=== PATIENT | male | born 1990 | race African-American/Black ===

== ENCOUNTER 2017-06-25 02:17 | Emergency (ER) | payer OTHER ==
[2017-06-25 02:26] VITALS: BP 169/94
--- NOTE | 2017-06-25 05:32 | ER Document Report ---
ED Extremity Problem, Lower - General Mode of Arrival: Ambulatory Information source: Patient TRAVEL OUTSIDE OF THE [place] IN LAST 30 DAYS: No <PATSY KURTZ - Last Filed: 06/25/17 06:04> <CHIN FISCHER - Last Filed: 06/25/17 07:13> - General Chief Complaint: Foot Pain Stated Complaint: RIGHT FOOT SWELLING Time Seen by Provider: 06/25/17 05:12 Notes: Patient is a 27-year-old male who presents to the emergency department today with complaints of right foot pain. Patient states he noticed this pain when waking up this morning while getting ready for work. Patient states as the day has gone on, the pain has progressed along with increase swelling. Patient states the pain seems to be located in his right great toe. Patient denies a history of gout. Patient denies any trauma to the area. (PATSY KURTZ) - Related Data Allergies/Adverse Reactions: No Known Allergies Allergy (Verified 06/25/17 02:22) Past Medical History - General Information source: Patient - Social History Family History: Reviewed & Not Pertinent - Past Medical History Cardiac Medical History: Reports: Hx Hypertension Past Surgical History: Reports: Hx Appendectomy - Immunizations Hx Diphtheria, Pertussis, Tetanus Vaccination: Yes <PATSY KURTZ - Last Filed: 06/25/17 06:04> - Social History Smoking Status: Current Every Day Smoker Chew tobacco use (# tins/day): No Frequency of alcohol use: Occasional Drug Abuse: None <CHIN FISCHER - Last Filed: 06/25/17 07:13> Review of Systems - Review of Systems Constitutional: No symptoms reported EENT: No symptoms reported Cardiovascular: No symptoms reported Respiratory: No symptoms reported Gastrointestinal: No symptoms reported Genitourinary: No symptoms reported Male Genitourinary: No symptoms reported Musculoskeletal: See HPI, Joint pain - right foot Skin: No symptoms reported Hematologic/Lymphatic: No symptoms reported Neurological/Psychological: No symptoms reported -: Yes All other systems reviewed and negative <PATSY KURTZ - Last Filed: 06/25/17 06:04> Physical Exam <PATSY KURTZ - Last Filed: 06/25/17 06:04> <CHIN FISCHER - Last Filed: 06/25/17 07:13> - Vital signs Vitals: Temp Pulse Resp BP Pulse Ox 98.5 F 87 20 169/94 H 97 06/25/17 02:23 06/25/17 02:23 06/25/17 02:23 06/25/17 02:23 06/25/17 02:23 - Notes Notes: PHYSICAL EXAM GENERAL: Alert, interacts well. No acute distress. HEAD: Normocephalic, atraumatic. EYES: Pupils equal, round, and reactive to light. Extraocular movements intact. ENT: Oral mucosa moist, tongue midline. NECK: Full range of motion. Supple. Trachea midline. LUNGS: No respiratory distress. ABDOMEN: Non-distended. EXTREMITIES: Moves all 4 extremities spontaneously. No edema, radial and dorsalis pedis pulses 2/4 bilaterally. No cyanosis. Ecchymosis, warmth, and tenderness with palpation over right 1st MTP. No lymphangitic streaking. NEUROLOGICAL: Alert and oriented x3. Normal speech. PSYCH: Normal affect, normal mood. SKIN: Warm, dry, normal turgor. No rashes or lesions noted. (PATSY KURTZ) Course <PATSY KURTZ - Last Filed: 06/25/17 06:04> <CHIN FISCHER - Last Filed: 06/25/17 07:13> - Re-evaluation Re-evalutation: 06/25/17 05:33 Consistent with gout, no evidence of infection, treat with colchicine, prednisone, [place] dispense pack and discharged home. (CHIN FISCHER) - Vital Signs Vital signs: Temp Pulse Resp BP Pulse Ox 98.5 F 87 20 169/94 H 97 06/25/17 02:23 06/25/17 02:23 06/25/17 02:23 06/25/17 02:23 06/25/17 02:23 Discharge <PATSY KURTZ - Last Filed: 06/25/17 06:04> <CHIN FISCHER - Last Filed: 06/25/17 07:13> - Discharge Clinical Impression: Acute gout of right foot Qualifiers: Gout etiology: unspecified cause Qualified Code(s): M10.9 - Gout, unspecified Hypertension Qualifiers: Hypertension type: essential hypertension Qualified Code(s): I10 - Essential ( primary) hypertension Condition: Stable Disposition: HOME, SELF-CARE Additional Instructions: Gout You have been diagnosed as having gout. Gout is a problem caused by an excess of uric acid, a natural chemical found in the body. The cause of this disease is unknown. Gout arthritis occurs when crystals of uric acid form in the joints. The big toe is the most common joint involved, but any joint can become affected. Persons with gout may also form uric acid kidney stones, resulting in flank pain and blood in the urine. Nodules of uric acid may form under the skin. The first step of treatment is to decrease the inflammation in the joint with antiinflammatory medication. Medication to lower the uric acid level in the blood may then be prescribed. This medication should be taken regularly, as any sudden change in dosage may provoke an attack of gout. Some foods, such as red meat, can provoke an attack in some gout sufferers. Call the doctor if new symptoms arise, or if you do not improve. Gout Diet Changing your diet can decrease the uric acid in your blood. High levels of uric acid cause gouty arthritis and uric acid kidney stones. If you have gout , you should avoid meats that are high in purine. Meat products to avoid include liver, kidneys, and brains. In general, poultry is better than red meats. Seafoods to avoid include anchovies, sardines, wynne, mackerel, and scallops. In addition to limiting purine-rich foods, people with gout should limit protein intake to 10-15% of total calories. Carbohydrate intake should be around 50% of total daily calories. Limit fat intake to 30% of total daily calories. Cholesterol intake should be less than 300 mg/day. Maintain or achieve a healthy body weight. Weight loss should be gradual. Rapid weight loss can actually increase uric acid levels temporarily. Alcohol, especially beer, should be avoided. Get plenty of fluids. This dilutes urinary uric acid, and helps prevent uric acid kidney stones. Drink eight to twelve cups of water daily. Prescriptions: Colchicine [Colchicine 0.6 mg Tablet] 0.6 mg PO Q6HP PRN #10 tablet PRN Reason: Prednisone [Deltasone 20 mg Tablet] 60 mg PO DAILY #15 tablet Forms: Elevated Blood Pressure, Return to Work Scribe Attestation: 06/25/17 07:13 I personally performed the services described in the documentation, reviewed and edited the documentation which was dictated to the scribe in my presence, and it accurately records my words and actions. (CHIN FISCHER) Scribe Documentation - Scribe Written by Scribe:: Andrew Hua, 06/25/2017 [id number] acting as scribe for :: Kashif <PATSY KURTZ - Last Filed: 06/25/17 06:04>
[2017-06-25] MEDS ORDERED: PREDNISONE 20 MG TABLET PO ONE (05:35)
[2017-06-25] MEDS ORDERED: COLCHICINE 0.6 MG TABLET PO ONE (05:35)
[2017-06-25] MEDS ORDERED: HYDROCODONE/ACETAMINOPHEN 5-325 MG 6 TAB/DSPK PO PRN (05:35)
== END 2017-06-25 06:27 | disposition home or self-care (01) ==
LOC: ER 02:17
DX: M10.9 Gout, unspecified (principal); I10 Essential (primary) hypertension; F17.200 Nicotine dependence, unspecified, uncomplicated
CPT/HCPCS: 99283; J7512

== ENCOUNTER 2018-05-20 00:13 | Emergency (ER) | payer OTHER ==
--- NOTE | 2018-05-20 01:27 | ER Document Report ---
ED Medical Screen (RME) - General Chief Complaint: Swelling of Tongue Stated Complaint: DIFFICULT TO SWALLOW/SORE THROAT Time Seen by Provider: 05/20/18 01:25 Mode of Arrival: Ambulatory Information source: Patient TRAVEL OUTSIDE OF THE [place] IN LAST 30 DAYS: No - HPI Patient complains to provider of: throat pain Notes: 05/20/18 01:26 Patient is here with complaints of right tongue swelling and right-sided sore throat. Patient states that he woke up with some mild swelling to the right aspect of his tongue. He denies any specific injury or biting this area. States that does not hurt. He denies any difficulty breathing or swallowing. He does complain of some fullness in the right side of his neck/throat area when he swallows. He denies taking any daily medications. He is not on lisinopril. He denies fever. He denies any nausea, vomiting, diarrhea. Physical exam: Minimal edema noted to the right lateral tongue. No redness. No induration. No sublingual induration. No swelling to the submental space. Mild tenderness to palpation of the right anterior neck. No swelling. Posterior pharynx exam is unremarkable with no peritonsillar abscess. Uvula is midline. No trismus or drooling. Patient is nontoxic-appearing. An initial examination was made on the patient as part of the triage process, and it was determined a more comprehensive evaluation was necessary. Initial labs were ordered and patient was transferred to another provider in the ED who assumed care and finished evaluation and plan. - Related Data Allergies/Adverse Reactions: No Known Allergies Allergy (Verified 06/25/17 02:22) Past Medical History - Social History Chew tobacco use (# tins/day): No Frequency of alcohol use: Rare Drug Abuse: None - Past Medical History Cardiac Medical History: Reports: Hx Hypertension Renal/ Medical History: Denies: Hx Peritoneal Dialysis Past Surgical History: Reports: Hx Appendectomy - Immunizations Hx Diphtheria, Pertussis, Tetanus Vaccination: Yes Physical Exam - Vital signs Vitals: Temp Pulse Resp BP Pulse Ox 99.4 F 65 18 154/92 H 97 05/20/18 00:52 05/20/18 00:52 05/20/18 00:52 05/20/18 00:52 05/20/18 00:52 Course - Vital Signs Vital signs: Temp Pulse Resp BP Pulse Ox 99.4 F 65 18 154/92 H 97 05/20/18 00:52 05/20/18 00:52 05/20/18 00:52 05/20/18 00:52 05/20/18 00:52
[2018-05-20 03:03] LABS: ABSOLUTE BASOPHILS # (AUTO) 0.1 10^3/uL (0.0-0.2); ABSOLUTE EOSINOPHILS # (AUTO) 0.2 10^3/uL (0.0-0.6); ABSOLUTE LYMPHOCYTES (AUTO) 2.9 10^3/uL (0.5-4.7); ABSOLUTE MONOCYTES (AUTO) 0.7 10^3/uL (0.1-1.4); ABSOLUTE NEUT (AUTO) 6.4 10^3/uL (1.7-8.2); BASOPHILS % (AUTO) 0.5 % (0-2); EOSINOPHILS % (AUTO) 2.4 % (0-6); HEMATOCRIT 38.3 % (37.9-51.0); HEMOGLOBIN 12.7 g/dL (13.5-17.0); LYMPHOCYTES % (AUTO) 27.8 % (13-45); MEAN CORPUSCULAR HEMOGLOBIN 26.2 pg (27.0-33.4); MEAN CORPUSCULAR HGB CONC 33.1 g/dL (32.0-36.0); MEAN CORPUSCULAR VOLUME 79 fl (80-97); MONOCYTES % (AUTO) 6.5 % (3-13); PLATELET COUNT 336 10^3/uL (150-450); RED BLOOD COUNT 4.84 10^6/uL (4.35-5.55); RED CELL DISTRIBUTION WIDTH 13.5 % (11.5-14.0); TOTAL CELLS COUNTED % (AUTO) 100 %; WHITE BLOOD COUNT 10.3 10^3/uL (4.0-10.5)
[2018-05-20 03:10] LABS: SEGMENTED NEUTROPHILS % (AUTO) 62.8 % (42-78)
[2018-05-20 03:22] LABS: ALANINE AMINOTRANSFERASE 29 U/L (21-72); ALBUMIN 4.4 g/dL (3.5-5.0); ALKALINE PHOSPHATASE 64 U/L (38-126); ANION GAP 12 (5-19); ASPARTATE AMINO TRANSFERASE 24 U/L (17-59); BILIRUBIN,DIRECT 0.4 mg/dL (0.0-0.4); BILIRUBIN,TOTAL 0.5 mg/dL (0.2-1.3); BLOOD UREA NITROGEN 16 mg/dL (7-20); CALCIUM 9.5 mg/dL (8.4-10.2); CARBON DIOXIDE 27 mmol/L (22-30); CHLORIDE 107 mmol/L (98-107); GLUCOSE 88 mg/dL (75-110); POTASSIUM 4.1 mmol/L (3.6-5.0); SODIUM 145.5 mmol/L (137-145); TOTAL PROTEIN 7.6 g/dL (6.3-8.2)
--- NOTE | 2018-05-20 04:00 | RADIOLOGY REPORT (SQ) ---
EXAM DESCRIPTION: CT NECK CHEST WITH IV CONTRAST COMPLETED DATE/TME: 05/20/2018 01:25 CLINICAL HISTORY: right tongue swelling, pain in right throat COMPARISON: None available TECHNIQUE: Axial CT of the neck soft tissues obtained following the uncomplicated intravenous administration of 75 mL Isovue-370. Coronal and sagittal reformatted images available. DLP: 631.61 mGy-cm FINDINGS: Orbits: Orbital floors and hardy are intact. Intraorbital contents: The globes are intact. Extraocular muscles are symmetric. No intraconal fat stranding. Facial bones: Intact. Parotid space: Chronic glands have a normal appearance. Submandibular space: No abnormalities of the submandibular glands. Lymph nodes: Scattered neck soft tissues lymph nodes are not enlarged by CT criteria. Parapharyngeal space: No abnormality identified Pharyngeal mucosal space/retropharyngeal space: No abnormality identified. Visceral space: No abnormality identified. Superior mediastinum: No definite abnormalities identified. Other: No definite abnormality involving the nasopharynx, oropharynx, or hypopharynx. Fossa of [place]muller are clear. Thyroid gland is unremarkable. Visualized tongue base is symmetric without enhancing mass identified. Subcutaneous soft tissues demonstrate no definite abnormalities. Visualized lung apices demonstrate no abnormalities. No acute osseous abnormalities. Exostosis arising from the left fourth rib. IMPRESSION: 1. No acute abnormality identified in the neck soft tissues. This exam was performed according to our departmental dose-optimization program, which includes automated exposure control, adjustment of the mA and/or kV according to patient size and/or use of iterative reconstruction technique.
[2018-05-20] MEDS ORDERED: PREDNISONE 20 MG TABLET PO ONE (04:37)
[2018-05-20] MEDS ORDERED: DEXAMETHASONE SOD PHOS INJ 10 MG/1 ML VIAL IM ONE (04:39)
--- NOTE | 2018-05-20 04:42 | ER Document Report ---
ED General - General Chief Complaint: Swelling of Tongue Stated Complaint: DIFFICULT TO SWALLOW/SORE THROAT Time Seen by Provider: 05/20/18 01:25 Mode of Arrival: Ambulatory Information source: Patient Notes: Patient is a 28-year-old male who presents with chief complaint of right tongue swelling that started this morning. Patient denies any other symptoms. Patient reports that he is able to swallow without difficulties. Patient does have a history of hypertension however he denies taking any medications for hypertension. Patient is able to speak in complete sentences and has no difficulties swallowing. TRAVEL OUTSIDE OF THE [place] IN LAST 30 DAYS: No - Related Data Allergies/Adverse Reactions: No Known Allergies Allergy (Verified 05/20/18 04:17) Past Medical History - General Information source: Patient - Social History Smoking Status: Never Smoker Chew tobacco use (# tins/day): No Frequency of alcohol use: Rare Drug Abuse: None Family History: Reviewed & Not Pertinent Patient has suicidal ideation: No Patient has homicidal ideation: No - Past Medical History Cardiac Medical History: Reports: Hx Hypertension Renal/ Medical History: Denies: Hx Peritoneal Dialysis Past Surgical History: Reports: Hx Appendectomy - Immunizations Hx Diphtheria, Pertussis, Tetanus Vaccination: Yes Review of Systems - Review of Systems Constitutional: No symptoms reported EENT: No symptoms reported, Other - Tongue swelling Cardiovascular: No symptoms reported Respiratory: No symptoms reported Gastrointestinal: No symptoms reported Genitourinary: No symptoms reported Male Genitourinary: No symptoms reported Musculoskeletal: No symptoms reported Skin: No symptoms reported Hematologic/Lymphatic: No symptoms reported Neurological/Psychological: No symptoms reported Physical Exam - Vital signs Vitals: Temp Pulse Resp BP Pulse Ox 99.4 F 65 18 154/92 H 97 05/20/18 00:52 05/20/18 00:52 05/20/18 00:52 05/20/18 00:52 05/20/18 00:52 - Notes Notes: PHYSICAL EXAMINATION: GENERAL: Well-appearing, well-nourished and in no acute distress. HEAD: Atraumatic, normocephalic. EYES: Pupils equal round and reactive to light, extraocular movements intact, sclera anicteric, conjunctiva are normal. ENT: Nares patent, oropharynx clear without exudates. Moist mucous membranes. Mild swelling noted to right side of tongue. NECK: Normal range of motion, supple without lymphadenopathy LUNGS: Breath sounds clear to auscultation bilaterally and equal. No wheezes rales or rhonchi. HEART: Regular rate and rhythm without murmurs ABDOMEN: Soft, nontender, nondistended abdomen. No guarding, no rebound. No masses appreciated. Musculoskeletal: Normal range of motion, no pitting or edema. No cyanosis. NEUROLOGICAL: Cranial nerves grossly intact. Normal speech, normal gait. Normal sensory, motor exams PSYCH: Normal mood, normal affect. SKIN: Warm, Dry, normal turgor, no rashes or lesions noted. Course - Re-evaluation Re-evalutation: 28-year-old male patient presenting with complaint of right-sided tongue swelling time of onset was this morning when he woke up. Patient reports that he felt the swelling was worse this morning and has gradually gotten better over the day. There is mild swelling noted on my exam. Patient's airway is patent, patient speaking in complete sentences, patient has no difficulty swallowing. Patient initially seen by triage provider. CBC and comprehensive metabolic panel are unremarkable. CT soft tissue neck is unremarkable with no mention of any abscess or any acute abnormalities. Patient will be given IM dose of dexamethasone 10 mg. Patient will be given a prescription for prednisone to have filled in 3 days if he continues to have the mild swelling. Patient does understand ED return precautions to include worsening of the swelling. Patient given primary care contacts in the area. Patient's vital signs are stable other than hypertension which patient has a history of. - Vital Signs Vital signs: Temp Pulse Resp BP Pulse Ox 97.9 F 71 21 H 158/99 H 96 05/20/18 04:47 05/20/18 04:47 05/20/18 04:47 05/20/18 04:47 05/20/18 04:47 - Laboratory Result Diagrams: 05/20/18 02:35 05/20/18 02:35 Laboratory results interpreted by me: 05/20/18 05/20/18 02:35 02:35 Hgb 12.7 L MCV 79 L MCH 26.2 L Sodium 145.5 H Discharge - Discharge Clinical Impression: Sore throat, Mild tongue swelling Condition: Stable Disposition: HOME, SELF-CARE Additional Instructions: Sore Throat Sore throats may be caused by viruses, bacteria, or fungi. Most are due to a virus, and must get better on their own. Bacterial sore throats, particularly those due to "strep," need treatment with antibiotics. If an antibiotic is prescribed, be sure to take the medication for a full 10 days. Failure to take the antibiotic can result in complications such as rheumatic fever. Sometimes, an injection of antibiotics is given instead of pills or liquid. This single "shot" is equal in effectiveness to the oral medication. To relieve symptoms, take acetaminophen for pain. Sip clear liquids frequently, or eat popsicles or ice chips. Anesthetic sprays or lozenges may help. Make sure the air in the room is not too dry. Avoid using decongestants or antihistamines. Call the doctor if there is no improvement in two days, or if you have difficulty breathing, increasing throat pain, high fever, rash, or frequent vomiting. Your CAT scan of your neck was normal. Please take the pain medications and steroids as prescribed. The steroid should help reduce any inflammation that is causing him discomfort. Please return to the emergency department if you develop worsening swelling your tongue, throat, cannot swallow, have difficulty breathing or shortness of breath. Will up with your doctor in the next 2-3 days for a follow-up. Prescriptions: Ibuprofen 800 mg PO Q8 #30 tablet Prednisone 10 mg PO ASDIR #21 tablet Forms: Return to Work
[2018-05-20 04:59] VITALS: BP 158/99
== END 2018-05-20 05:23 | disposition home or self-care (01) ==
LOC: ER 00:13
DX: J02.9 Acute pharyngitis, unspecified (principal); R22.0 Localized swelling, mass and lump, head; I10 Essential (primary) hypertension
CPT/HCPCS: 99283; 96372; 36415; 85025; 80053; 70491; J1100

== ENCOUNTER 2018-12-23 16:03 | Emergency (ER) | payer OTHER ==
[2018-12-23 16:12] VITALS: BP 162/95
[2018-12-23] MEDS ORDERED: HYDROCODONE/ACETAMINOPHEN 5-325 MG TABLET PO ONE (16:53)
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
== END 2018-12-23 18:18 | disposition home or self-care (01) ==
LOC: ER 16:03
DX: S29.012A Strain of muscle and tendon of back wall of thorax, initial encounter (principal); S53.401A Unspecified sprain of right elbow, initial encounter; V89.2XXA Person injured in unspecified motor-vehicle accident, traffic, initial encounter; I10 Essential (primary) hypertension
CPT/HCPCS: 72070; 99283

== ENCOUNTER 2019-01-25 11:10 | Emergency (ER) | payer OTHER ==
--- NOTE | 2019-01-25 11:29 | ER Document Report ---
ED Medical Screen (RME) - General Chief Complaint: Swelling Stated Complaint: DIFFICULTY BREATHING Time Seen by Provider: 01/25/19 11:19 Mode of Arrival: Ambulatory Information source: Patient Notes: This is a 28-year-old man with a history of hypertension (currently on no medicines) who presents to the emergency room with bilateral hand swelling for 2 days, shortness of breath, sore throat for 1 day, right knee pain since this morning. Past surgical history includes appendectomy, thoracentesis for pleural effusion in 2008 (he is unsure what the cause was). TRAVEL OUTSIDE OF THE [place] IN LAST 30 DAYS: No - Related Data Allergies/Adverse Reactions: No Known Allergies Allergy (Verified 01/25/19 11:14) Past Medical History - Social History Chew tobacco use (# tins/day): No Frequency of alcohol use: Occasional Drug Abuse: None - Past Medical History Cardiac Medical History: Reports: Hx Hypertension Renal/ Medical History: Denies: Hx Peritoneal Dialysis Past Surgical History: Reports: Hx Appendectomy, Other - Lung surgery - Immunizations Hx Diphtheria, Pertussis, Tetanus Vaccination: Yes Physical Exam - Vital signs Vitals: Temp Pulse Resp BP Pulse Ox 99.7 F 93 18 180/99 H 98 01/25/19 11:14 01/25/19 11:14 01/25/19 11:14 01/25/19 11:14 01/25/19 11:14 Course - Vital Signs Vital signs: Temp Pulse Resp BP Pulse Ox 99.7 F 93 18 180/99 H 98 01/25/19 11:14 01/25/19 11:14 01/25/19 11:14 01/25/19 11:14 01/25/19 11:14
[2019-01-25 13:57] LABS: APPEARANCE,URINE SLIGHTLY-CLOUDY; BILIRUBIN,URINE NEGATIVE (NEGATIVE); COLOR,URINE YELLOW; GLUCOSE, URINE NEGATIVE (NEGATIVE); KETONES,URINE NEGATIVE (NEGATIVE); LEUKOCYTE ESTERASE,URINE NEGATIVE (NEGATIVE); NITRITE,URINE NEGATIVE (NEGATIVE); PROTEIN,URINE NEGATIVE (NEGATIVE); URINE SPECIFIC GRAVITY 1.026; UROBILINOGEN,URINE NEGATIVE mg/dL (<2.0)
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
--- NOTE | 2019-01-25 14:04 | RADIOLOGY REPORT (SQ) ---
EXAM DESCRIPTION: KNEE RIGHT 3 VIEWS COMPLETED DATE/TIME: 01/25/2019 1:43 pm REASON FOR STUDY: right knee pain COMPARISON: None. NUMBER OF VIEWS: Three views. TECHNIQUE: AP, lateral, and sunrise view of the patella radiographic images acquired of the right kn ee. LIMITATIONS: None. FINDINGS: MINERALIZATION: Normal. BONES: No acute fracture or dislocation. No worrisome bone lesions. JOINT: No effusion. SOFT TISSUES: No soft tissue swelling. No radio-opaque foreign body. OTHER: No other significant finding. IMPRESSION: 1. NEGATIVE STUDY OF THE RIGHT KNEE. TECHNICAL DOCUMENTATION: JOB ID: [id number] [employer]- All Rights Reserved Reading location - IP/workstation name: [email or web address]
[2019-01-25 14:12] LABS: ABSOLUTE EOSINOPHILS # (AUTO) 0.1 10^3/uL (0.0-0.6); ABSOLUTE LYMPHOCYTES (AUTO) 1.6 10^3/uL (0.5-4.7); ABSOLUTE MONOCYTES (AUTO) 0.5 10^3/uL (0.1-1.4); ABSOLUTE NEUT (AUTO) 9.8 10^3/uL (1.7-8.2); BASOPHILS % (AUTO) 0.4 % (0-2); EOSINOPHILS % (AUTO) 0.5 % (0-6); HEMATOCRIT 39.1 % (37.9-51.0); HEMOGLOBIN 12.9 g/dL (13.5-17.0); LYMPHOCYTES % (AUTO) 13.3 % (13-45); MEAN CORPUSCULAR HGB CONC 33.1 g/dL (32.0-36.0); MEAN CORPUSCULAR VOLUME 79 fl (80-97); MONOCYTES % (AUTO) 4.1 % (3-13); PLATELET COUNT 363 10^3/uL (150-450); RED BLOOD COUNT 4.98 10^6/uL (4.35-5.55); RED CELL DISTRIBUTION WIDTH 13.9 % (11.5-14.0); SEGMENTED NEUTROPHILS % (AUTO) 81.7 % (42-78); TOTAL CELLS COUNTED % (AUTO) 100 %
[2019-01-25 14:31] LABS: ALANINE AMINOTRANSFERASE 25 U/L (21-72); ALBUMIN 4.4 g/dL (3.5-5.0); ALKALINE PHOSPHATASE 72 U/L (38-126); ANION GAP 10 (5-19); ASPARTATE AMINO TRANSFERASE 23 U/L (17-59); BILIRUBIN,DIRECT 0.3 mg/dL (0.0-0.4); BILIRUBIN,TOTAL 0.9 mg/dL (0.2-1.3); BLOOD UREA NITROGEN 13 mg/dL (7-20); CALCIUM 9.5 mg/dL (8.4-10.2); CARBON DIOXIDE 26 mmol/L (22-30); CHLORIDE 103 mmol/L (98-107); GLUCOSE 119 mg/dL (75-110); POTASSIUM 3.7 mmol/L (3.6-5.0); SODIUM 139.3 mmol/L (137-145); TOTAL PROTEIN 7.6 g/dL (6.3-8.2)
[2019-01-25 15:25] VITALS: BP 152/88
--- NOTE | 2019-01-25 15:25 | ER Document Report ---
ED General - General Chief Complaint: Swelling Stated Complaint: DIFFICULTY BREATHING Time Seen by Provider: 01/25/19 11:19 Primary Care Provider: [facility] [Provider Group] - Follow up as needed (This is the number the free clinic associated with the hospital) MAXINE JIMENEZ MD [ACTIVE STAFF] - Follow up in 1 week (This is the number the orthopedic surgeon) Mode of Arrival: Ambulatory Information source: Patient Notes: This is a 28-year-old man with a history of hypertension (currently on no medicines) who presents with swelling of both his hands for the last several days. Patient also notes he is been having pain in the right knee. He denies any acute injury. He does have a history of playing football and did have an ACL right knee injury on the left side. Patient also states he has had a sore throat. He denies any chest pain, abdominal pain, headache. He denies any fever. TRAVEL OUTSIDE OF THE [place] IN LAST 30 DAYS: No - HPI Onset: Last week Onset/Duration: Gradual Quality of pain: Dull Severity: Mild Pain Level: 1 Associated symptoms: Nonproductive cough. denies: Chest pain, Fever, Shortness of breath Exacerbated by: Denies Relieved by: Denies Similar symptoms previously: Yes Recently seen / treated by doctor: No - Related Data Allergies/Adverse Reactions: No Known Allergies Allergy (Verified 01/25/19 11:14) Past Medical History - General Information source: Patient - Social History Smoking Status: Current Every Day Smoker Cigarette use (# per day): Yes - Half pack per day Chew tobacco use (# tins/day): No Frequency of alcohol use: Occasional Drug Abuse: None Lives with: Family Family History: Reviewed & Not Pertinent Patient has suicidal ideation: No Patient has homicidal ideation: No - Past Medical History Cardiac Medical History: Reports: Hx Hypertension Renal/ Medical History: Denies: Hx Peritoneal Dialysis Past Surgical History: Reports: Hx Appendectomy, Other - Lung surgery - Immunizations Hx Diphtheria, Pertussis, Tetanus Vaccination: Yes Review of Systems - Review of Systems Constitutional: denies: Chills, Fever EENT: See HPI Cardiovascular: denies: Chest pain, Palpitations, Heart racing Respiratory: Cough. denies: Hemoptysis, Wheezing Gastrointestinal: No symptoms reported Genitourinary: No symptoms reported Male Genitourinary: No symptoms reported Musculoskeletal: See HPI Skin: No symptoms reported Hematologic/Lymphatic: No symptoms reported Neurological/Psychological: No symptoms reported Physical Exam - Vital signs Vitals: Temp Pulse Resp BP Pulse Ox 99.7 F 93 18 180/99 H 98 01/25/19 11:14 01/25/19 11:14 01/25/19 11:14 01/25/19 11:14 01/25/19 11:14 Notes: Physical exam: GENERAL: He is alert and oriented x3, no acute distress. His blood pressure is noted to be quite elevated. HEAD: Atraumatic, normocephalic. EYES: Pupils equal round and reactive to light, extraocular movements intact, sclera anicteric, conjunctiva are normal. ENT: TMs normal, nares patent, oropharynx clear without exudates. Moist mucous membranes. NECK: Normal range of motion, supple without obvious mass or JVD. LUNGS: Breath sounds clear to auscultation bilaterally and equal. No wheezes rales or rhonchi. HEART: Regular rate and rhythm without murmurs, rubs or gallops. ABDOMEN: Soft, normoactive bowel sounds. No tenderness to palpation. No guarding, no rebound. No masses appreciated. EXTREMITIES: The patient has pain with range of motion of the right knee. There is no effusion. There is no obvious swelling. There is no erythema. There is no warmth. He has no calf tenderness or swelling. As far as his hands, cannot really detect any significant edema of the hands. He does have good pulses bilaterally. NEUROLOGICAL: Cranial nerves II through XII grossly intact. Normal speech, moving all extremities. PSYCH: Normal mood, normal affect. SKIN: Warm, Dry, normal turgor, no rashes or lesions noted. Course - Re-evaluation Re-evalutation: 01/25/19 15:44 I had a long conversation with the patient regarding his blood pressure. I think this is the most immediate issue. He is willing to be put on a medicine and have explained to him that this medicine is not expensive. He is willing to follow-up in the [facility]. I will give him some temporary pain medicine for his right knee pain. 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 He is up on his feet a lot. I will give him the number the orthopedic clinic for follow-up. - Vital Signs Vital signs: Temp Pulse Resp BP Pulse Ox 100.1 F 84 20 152/88 H 98 01/25/19 15:25 01/25/19 15:25 01/25/19 15:25 01/25/19 15:25 01/25/19 15:25 - Laboratory Result Diagrams: 01/25/19 13:59 01/25/19 13:59 Laboratory results interpreted by me: 01/25/19 01/25/19 13:59 13:59 WBC 12.0 H Hgb 12.9 L MCV 79 L MCH 26.0 L Seg Neutrophils % 81.7 H Absolute Neutrophils 9.8 H Glucose 119 H - Diagnostic Test Radiology reviewed: Image reviewed, Reports reviewed - X-ray of the chest shows clear lungs. X-ray of the right knee shows no obvious injury Discharge - Discharge Clinical Impression: Hypertension, Right knee pain Condition: Stable Disposition: HOME, SELF-CARE Instructions: High Blood Pressure ([facility]) Additional Instructions: As we discussed, your kidney function tests look good. Your electrolytes were normal. Your chest x-ray was clear. There is no obvious injury to the right knee. Your blood pressure however is quite elevated and this can contribute to the swelling in the hands and feet. I am going to start you on a new blood pressure medicine which should improve the swelling in your hands and feet. I do want you to follow-up with a primary care doctor. Prescriptions: Hydrochlorothiazide [Hydrodiuril 25 mg Tablet] 25 mg PO QAM #30 tablet Tramadol HCl [Ultram 50 mg Tablet] 50 mg PO ASDIR PRN #20 tablet PRN Reason: Forms: Return to Work Referrals: [facility] [Provider Group] - Follow up as needed (This is the number the free clinic associated with the hospital) MAXINE JIMENEZ MD [ACTIVE STAFF] - Follow up in 1 week (This is the number the orthopedic surgeon)
== END 2019-01-25 15:47 | disposition home or self-care (01) ==
LOC: ER 11:10
DX: M25.561 Pain in right knee (principal); I10 Essential (primary) hypertension; M79.89 Other specified soft tissue disorders; J02.9 Acute pharyngitis, unspecified; R05 Cough; X58.XXXA Exposure to other specified factors, initial encounter; Y93.61 Activity, american tackle football; F17.210 Nicotine dependence, cigarettes, uncomplicated
CPT/HCPCS: 36415; 71046; 80053; 81001; 85025; 87070; 87880; 99283

== ENCOUNTER 2019-10-16 13:13 | Emergency (ER) | payer SELFPAY ==
[2019-10-16] MEDS ORDERED: METHOCARBAMOL 500 MG TABLET PO ONE (13:37)
[2019-10-16 13:38] VITALS: BP 158/88
--- NOTE | 2019-10-16 13:42 | ER Document Report ---
ED Medical Screen (RME) - General Chief Complaint: Low Back Pain Stated Complaint: BACK PAIN Time Seen by Provider: 10/16/19 13:31 Primary Care Provider: [facility] [Provider Group] - Follow up as needed Mode of Arrival: Medic Information source: Patient Notes: 29-year-old male presented to ED for complaint of low back pain since 10 AM. He states he was helping a friend move some furniture stove dryers and then when he got home he felt like his back was locked up. He states it is very painful to move in any way. He did come via EMS. He states he has no loss of control of bowel bladder, no saddle anesthesia, no loss control of lower extremities. He states it is very painful for him to move. Patient states the pain radiates across both hips. TRAVEL OUTSIDE OF THE [place] IN LAST 30 DAYS: No - HPI Onset: This morning Onset/Duration: Gradual Quality of pain: Sharp Severity: Moderate Pain Level: 4 Associated Symptoms: Other - Back pain Exacerbated by: Movement Relieved by: Denies Similar symptoms previously: Yes Recently seen / treated by doctor: No - Related Data Smoking: Non-smoker Frequency of alcohol use: Rare Drug Abuse: None Allergies/Adverse Reactions: No Known Allergies Allergy (Verified 10/16/19 13:31) Past Medical History - General Information source: Patient - Social History Cigarette use (# per day): No Chew tobacco use (# tins/day): No Frequency of alcohol use: Rare Drug Abuse: None Occupation: Gas station Lives with: Alone Family history: Reviewed & Not Pertinent - Past Medical History Cardiac Medical History: Reports: Hx Hypertension Pulmonary Medical History: Reports: None EENT Medical History: Reports: None Neurological Medical History: Reports: None Endocrine Medical History: Reports: None Renal/ Medical History: Reports: None Malignancy Medical History: Reports None GI Medical History: Reports: None Musculoskeltal Medical History: Reports Hx Musculoskeletal Trauma Skin Medical History: Reports None Psychiatric Medical History: Reports: None Traumatic Medical History: Reports: None Infectious Medical History: Reports: None Past Surgical History: Reports: Hx Appendectomy, Other - Lung surgery - Immunizations Hx Diphtheria, Pertussis, Tetanus Vaccination: Yes Review of Systems - Review of Systems Constitutional: No symptoms reported EENT: No symptoms reported Cardiovascular: No symptoms reported Respiratory: No symptoms reported Gastrointestinal: No symptoms reported Genitourinary: No symptoms reported Male Genitourinary: No symptoms reported Musculoskeletal: Back pain, Muscle pain, Muscle stiffness Skin: No symptoms reported Hematologic/Lymphatic: No symptoms reported Neurological/Psychological: No symptoms reported -: Yes All other systems reviewed and negative Physical Exam - Vital signs Vitals: Temp Pulse Resp BP Pulse Ox 97.7 F 80 20 188/90 H 96 10/16/19 13:24 10/16/19 13:24 10/16/19 13:24 10/16/19 13:24 10/16/19 13:24 Interpretation: Normal - General General appearance: Appears well, Alert - HEENT Head: Normocephalic, Atraumatic Eyes: Normal Pupils: PERRL - Respiratory Respiratory status: No respiratory distress Chest status: Nontender Breath sounds: Normal Chest palpation: Normal - Cardiovascular Rhythm: Regular Heart sounds: Normal auscultation Murmur: No - Abdominal Inspection: Normal Distension: No distension Bowel sounds: Normal Tenderness: Nontender Organomegaly: No organomegaly - Back Back: Normal, Tender. No: Deformity/step-off, CVA tenderness, Vertebra tenderness, Scars, Scoliosis, Wounds Notes: No signs or symptoms of cauda equina. Patient states his pain is all the way across his back and goes across both hips. Patient denies any saddle anesthesia, loss of control of bowel or bladder, loss of control or sensation to the lower extremities - Extremities General upper extremity: Normal inspection, Nontender, Normal color, Normal ROM, Normal temperature General lower extremity: Normal inspection, Nontender, Normal color, Normal ROM, Normal temperature, Normal weight bearing. No: Mary Lou's sign - Neurological Neuro grossly intact: Yes Cognition: Normal Orientation: AAOx4 Jefferson Coma Scale Eye Opening: Spontaneous Deborah Coma Scale Verbal: Oriented Jefferson Coma Scale Motor: Obeys Commands Jefferson Coma Scale Total: 15 Speech: Normal Motor strength normal: LUE, RUE, LLE, RLE Sensory: Normal - Psychological Associated symptoms: Normal affect, Normal mood - Skin Skin Temperature: Warm Skin Moisture: Dry Skin Color: Normal Course - Re-evaluation Re-evalutation: 10/16/19 20:01 After performing a Medical Screening Examination, I estimate there is LOW risk for EXPANDING OR RUPTURED ABDOMINAL AORTIC ANEURYSM, CAUDA EQUINA SYNDROME, EPIDURAL MASS LESION, or HERNIATED DISK CAUSING SEVERE SPINAL STENOSIS, thus I consider the discharge disposition reasonable. I have reevaluated this patient multiple times and no significant life threatening changes are noted. The patient and I have discussed the diagnosis and risks, and we agree with discharging home and close follow-up. We also discussed returning to the Emergency Department immediately if new or worsening symptoms occur with the understanding that symptoms and presentations can change. We have discussed the symptoms which are most concerning (e.g., saddle anesthesia, urinary or bowel incontinence or retention, changing or worsening pain) that necessitate immediate return. - Vital Signs Vital signs: Temp Pulse Resp BP Pulse Ox 97.7 F 80 20 158/88 H 96 10/16/19 13:24 10/16/19 13:24 10/16/19 13:24 10/16/19 13:37 10/16/19 13:24 - Diagnostic Test Radiology reviewed: Image reviewed, Reports reviewed Doctor's Discharge - Discharge Clinical Impression: Back pain Qualifiers: Back pain location: low back pain Chronicity: acute Back pain laterality: bilateral Sciatica presence: with sciatica Sciatica laterality: bilateral sciatica Qualified Code(s): M54.42 - Lumbago with sciatica, left side Condition: Stable Disposition: HOME, SELF-CARE Instructions: Family Physicians / Practices Additional Instructions: LOW BACK PAIN: Three out of every four people will have an episode of disabling back pain during their lifetime. Most commonly the pain is due to straining of the muscles and ligaments in the low back. Usual treatment includes: (1) Rest on a firm surface. Avoid lying on your stomach. (2) Ice pack the painful area. After a few days, gentle heat may be used intermittently to relax the area, or ice packs can be continued. (3) Medication may be needed -- muscle relaxers and antiinflammatory medicines are commonly used. (4) As the back improves, exercises are prescribed to strengthen the back and abdominal muscles. Your doctor will advise you on the proper care for your back at each stage in your recovery. You may be better in a few days -- or healing may take several weeks. If new symptoms of a "herniated disc" (radiation of pain, numbness, or tingling down the back of the leg or weakness in the leg) occur, you should be re-examined. Further testing may be necessary. Acetaminophen Acetaminophen may be taken for pain relief or fever control. It's much safer than aspirin, offering a wider range of "safe" dosages. It is safe during . Some brand names are Tylenol, Panadol, Datril, Anacin 3, Tempra, and Liquiprin. Acetaminophen can be repeated every four hours. The following are maximum recommended dosages: WEIGHT Dose Drops Elixir Chewable(80mg) (LBS.) drprs=droppers tsp=teaspoon 6 40 mg .4 ml (1/2) 6-11 80 mg .8 ml (full) 1/2 tsp 1 tab 12-16 120 mg 1 1/2 drprs 3/4 tsp 1 1/2 tabs 17-23 160 mg 2 drprs 1 tsp 2 tabs 24-30 240 mg 3 drprs 1 1/2 tsp 3 tabs 30-35 320 mg 2 tsp 4 tabs 36-41 360 mg 2 1/4 tsp 4 1/2 tabs 42-47 400 mg 2 1/2 tsp 5 tabs 48-53 480 mg 3 tsp 6 tabs 54-59 520 mg 3 1/4 tsp 6 1/2 tabs 60-64 560 mg 3 1/2 tsp 7 tabs 65-70 600 mg 3 3/4 tsp 7 1/2 tabs 71-76 640 mg 4 tsp 8 tabs 77-82 720 mg 4 1/2 tsp 9 tabs 83-88 800 mg 5 tsp 10 tabs >89 pounds or adults 650 mg to 900 mg Acetaminophen can be repeated every four hours. Maximum daily dose not to exceed 4000 mg. These maximum recommended dosages are slightly higher than the dosages written on the product container, but these dosages are very safe and well below the toxic dosage for acetaminophen. Ibuprofen Ibuprofen is an excellent, safe drug for pain control. In addition, it has potent antiinflammatory effects which are beneficial, especially in the treatment of injuries, arthritis, or tendonitis. It's best to take ibuprofen with food. Persons with ulcer disease or allergy to aspirin should notify their physician of this before taking ibuprofen. Take the medication exactly as prescribed. Don't take additional doses unless instructed to do so by your doctor. If you develop wheezing, shortness of breath, hives, faintness, stomach pain, vomiting, or dark black stools, return for re-evaluation at once. MUSCLE RELAXERS: Muscle relaxing medications are usually prescribed for acute muscle spasm or injury to the neck and back. They are often combined with antiinflammatory pain medication for increased relief. You may stop the muscle relaxer when the pain and stiffness have improved. Start the medication again if spasms recur. Muscle relaxers may cause drowsiness, especially with the first dose. Do not operate machinery or drive while under the effects of the medication. Most muscle relaxers last up to 24 hours. Do not combine the medication with alcohol. ICE PACKS: Apply ice packs frequently against the painful area. Many different schedules are recommended, such as "20 minutes on, 20 minutes off" or "one hour ice, two hours rest." If you need to work, you may need to go longer between ice treatments. You should plan to have the area ice packed AT LEAST one fourth of the time. The ice should be applied over the wrap, tape, or splint, or over a layer of cloth -- not directly against the skin. Some ice bags have a built-in cloth and can be put directly on the skin. WARM PACKS: After approximately two days, apply gentle heat (such as a heating pad or hot water bottle) for about 20 to 30 minutes about every two hours -- at least four times daily. Warmth and elevation will help you make a more rapid recovery, and will ease the pain considerably. Do not use HOT heat, and never apply heat for longer than 30 minutes. The continuous heat can invisibly damage skin and muscles -- even when no burn is seen on the surface. Damaged muscles can make you MORE sore. FOLLOW-UP CARE: If you have been referred to a physician for follow-up care, call the physicians office for an appointment as you were instructed or within the next two days. If you experience worsening or a significant change in your symptoms, notify the physician immediately or return to the Emergency Department at any time for re-evaluation. Prescriptions: Methocarbamol [Robaxin 500 mg Tablet] 500 mg PO BID PRN #14 tablet PRN Reason: For Pain Forms: Elevated Blood Pressure Referrals: [facility] [Provider Group] - Follow up as needed
--- NOTE | 2019-10-16 14:09 | RADIOLOGY REPORT (SQ) ---
EXAM DESCRIPTION: L SPINE WHOLE COMPLETED DATE/TIME: 10/16/2019 2:00 pm REASON FOR STUDY: low back pain COMPARISON: None. NUMBER OF VIEWS: Five views including obliques. TECHNIQUE: AP, lateral, oblique, and sacral radiographic images acquired of the lumbar spine. LIMITATIONS: None. FINDINGS: MINERALIZATION: Normal. SEGMENTATION: Normal. No transitional anatomy. ALIGNMENT: Normal. VERTEBRAE: Maintained height. No fracture or worrisome bone lesion. DISCS: Preserved height. No significant osteophytes or end plate irregularity. POSTERIOR ELEMENTS: Pedicles and facets are intact. No pars defect or posterior arch defects. HARDWARE: None in the spine. PARASPINAL SOFT TISSUES: Normal. PELVIS: Intact as visualized. No fractures or worrisome bone lesions. SI joints intact. OTHER: No other significant finding. IMPRESSION: NORMAL 5 VIEW LUMBAR SPINE. TECHNICAL DOCUMENTATION: JOB ID: [id number] [employer]- All Rights Reserved Reading location - IP/workstation name: [email or web address]
== END 2019-10-16 14:44 | disposition home or self-care (01) ==
LOC: ER 13:13
DX: M54.41 Lumbago with sciatica, right side (principal); M54.42 Lumbago with sciatica, left side; M79.10 Myalgia, unspecified site; I10 Essential (primary) hypertension
CPT/HCPCS: 72110; 99283